=== PATIENT | female | born 1955 | race Two or more races ===

== ENCOUNTER 2018-03-23 09:50 | Emergency (ER) | payer SELFPAY ==
[~2018-03-23] VITALS: Ht 170.2 cm; Wt 78.0 kg
[2018-03-23 10:13] VITALS: BP 166/84
== END 2018-03-23 11:50 | disposition left against medical advice (07) ==
LOC: ER 09:54
DX: M54.5 Low back pain (principal); Z53.21 Procedure and treatment not carried out due to patient leaving prior to being seen by health care provider
CPT/HCPCS: 72100